=== PATIENT | female | born 1965 | race Caucasian/White ===

== ENCOUNTER → 2019-11-28 | Day surgery (SDC) | payer OTHER ==
[~2019-11-28] MED LIST: GLUCAGON FOR INJ 1 MG VIAL ONE; HYOSCYAMINE 0.125 MG TAB ONE; LEVOTHYROXINE88 MCG PO; LIDOCAINE HCL 2% LOCAL INJ 5 ML SDV VIAL INJ ONE; LISINOPRIL10 MG PO; PROPOFOL IV EMULSION 10 MG/ML 20 ML VIAL ONE; SIMVASTATIN40 MG PO
[2019-11-28 15:20] VITALS: BP 128/76
--- NOTE | 2019-11-28 15:44 | Operative Report ---
DATE OF PROCEDURE: 11/28/2019 SURGEON: Landon Zavala MD PROCEDURE: Colonoscopy with biopsies. INDICATIONS FOR COLONOSCOPY: Colorectal cancer screening, positive Cologuard test. MEDICATIONS: The patient was done under MAC, please see anesthesiologist's note. PROCEDURE IN DETAIL: With the patient in left lateral decubitus position, the flexible fiberoptic Olympus colonoscope was inserted into the rectum with ease and advanced all the way to the cecum. It was then withdrawn slowly, mucosa overlying the cecum, ascending colon, transverse colon grossly appeared to be within normal limits. Diverticular disease was noted primarily in the left colon. Two prominent folds were noted in the distal descending colon and biopsies were obtained, and site was tattooed. The sigmoid other than for diverticular disease grossly appeared to be within normal limits. The rectum was within normal limits. The scope was then retroflexed into the distal rectum, small internal hemorrhoids were noted, none of which was actively bleeding. The scope was then straightened out, it was subsequently withdrawn. The patient tolerated the procedure well. IMPRESSION: 1. Diverticulosis. 2. Prominent folds x2, distal descending colon, biopsied, and site tattooed. 3. Internal hemorrhoids, none actively bleeding. PLAN: 1. Followup histology. 2. Initiate high-fiber, low-fat diet. 3. Initiate high-fiber supplement. 4. If biopsies are positive for adenomatous tissue, then a repeat colonoscopy with attempt to resect per endoscopic mucosa resection of both folds in the distal descending colon. Landon Zavala MD [facility] [place] /[id number] cc: DR. THOMAS GIL
== END | disposition home or self-care (01) ==
LOC: OR 11:45
PROVIDERS: ATTEND Internal Medicine Gastroenterology
DX: R19.5 Other fecal abnormalities (principal); K63.89 Other specified diseases of intestine; K57.30 Diverticulosis of large intestine without perforation or abscess without bleeding; K64.8 Other hemorrhoids; I10 Essential (primary) hypertension; N20.0 Calculus of kidney; R00.1 Bradycardia, unspecified; E66.01 Morbid (severe) obesity due to excess calories; F41.9 Anxiety disorder, unspecified; Z01.810 Encounter for preprocedural cardiovascular examination; Z01.812 Encounter for preprocedural laboratory examination; Z11.59 Encounter for screening for other viral diseases; Z68.43 Body mass index [BMI] 50.0-59.9, adult; Z98.84 Bariatric surgery status
CPT/HCPCS: 45380; 45381; 93005; J1610; J2001; J2704; U0002

== ENCOUNTER → 2020-07-20 | Day surgery (SDC) | payer MEDICARE ==
[~2020-07-20] MED LIST changes: +BUPROPION HCL150 M2 PO; +BUSPIRONE HCL10 MG PO; +CITALOPRAM HBR20 MG PO; +DICYCLOMINE HCL20 MG PO; +FAMOTIDINE20 MG PO; -GLUCAGON FOR INJ 1 MG VIAL ONE; -HYOSCYAMINE 0.125 MG TAB ONE; -LIDOCAINE HCL 2% LOCAL INJ 5 ML SDV VIAL INJ ONE; +MIDAZOLAM HCL 2 MG/2 ML VIAL ONE; +ONDANSETRON ODT4 MG PO; -PROPOFOL IV EMULSION 10 MG/ML 20 ML VIAL ONE
[2020-07-20 09:15] VITALS: BP 139/82
== END | disposition home or self-care (01) ==
LOC: ENDO 05:54
PROVIDERS: ATTEND Internal Medicine Gastroenterology
DX: K20.90 Esophagitis, unspecified without bleeding (principal); K21.9 Gastro-esophageal reflux disease without esophagitis; K44.9 Diaphragmatic hernia without obstruction or gangrene; K31.89 Other diseases of stomach and duodenum; Z98.84 Bariatric surgery status; Z86.010 Personal history of colon polyps; K59.09 Other constipation; N39.0 Urinary tract infection, site not specified; I10 Essential (primary) hypertension; M54.9 Dorsalgia, unspecified; M54.2 Cervicalgia; F32.9 Major depressive disorder, single episode, unspecified; F41.9 Anxiety disorder, unspecified; Z01.810 Encounter for preprocedural cardiovascular examination; Z01.812 Encounter for preprocedural laboratory examination; Z20.822 Contact with and (suspected) exposure to COVID-19; Z68.41 Body mass index [BMI] 40.0-44.9, adult
CPT/HCPCS: 43245; 93005; J2250; U0002; 43450

== ENCOUNTER → 2020-08-24 | Day surgery (SDC) | payer MEDICARE ==
[~2020-08-24] MED LIST changes: -MIDAZOLAM HCL 2 MG/2 ML VIAL ONE
[2020-08-24 13:25] VITALS: BP 146/69
== END | disposition home or self-care (01) ==
LOC: OR 11:40
PROVIDERS: ATTEND Internal Medicine Gastroenterology
DX: K95.89 Other complications of other bariatric procedure (principal); K31.89 Other diseases of stomach and duodenum; Z98.84 Bariatric surgery status; K20.90 Esophagitis, unspecified without bleeding; K44.9 Diaphragmatic hernia without obstruction or gangrene; I10 Essential (primary) hypertension; E03.9 Hypothyroidism, unspecified; E78.00 Pure hypercholesterolemia, unspecified; E66.01 Morbid (severe) obesity due to excess calories; K21.9 Gastro-esophageal reflux disease without esophagitis; N20.0 Calculus of kidney; Z01.812 Encounter for preprocedural laboratory examination; Z20.822 Contact with and (suspected) exposure to COVID-19; Z68.42 Body mass index [BMI] 45.0-49.9, adult; Z85.42 Personal history of malignant neoplasm of other parts of uterus
CPT/HCPCS: 43245; C1726; U0002; 43450

== ENCOUNTER → 2021-09-06 | Day surgery (SDC) | payer MEDICARE ==
[~2021-09-06] MED LIST changes: +LIDOCAINE HCL 2% LOCAL INJ 5 ML SDV VIAL INJ ONE; +METOCLOPRAMIDE HCL 10 MG/2ML VIAL ONE; +MULTI-VITAMIN1 EACH PO; +ONDANSETRON HCL INJ 2MG/ML 2ML 2 MG/ML VIAL ONE; +POVIDONE IODINE 0.05% 0.05 % ML PO ONE; +PROPOFOL IV EMULSION 10 MG/ML 20 ML VIAL ONE; +PROTONIX20 MG PO; +VITAMIN D250 MCG PO; +VITAMIN D3 COM1 EACH PO
[2021-09-06 09:20] VITALS: BP 133/64
== END | disposition home or self-care (01) ==
LOC: ENDO 06:44
PROVIDERS: ATTEND Internal Medicine Gastroenterology
DX: K29.50 Unspecified chronic gastritis without bleeding (principal); K25.9 Gastric ulcer, unspecified as acute or chronic, without hemorrhage or perforation; R13.10 Dysphagia, unspecified; K44.9 Diaphragmatic hernia without obstruction or gangrene; K31.89 Other diseases of stomach and duodenum; Z98.84 Bariatric surgery status; K50.90 Crohn's disease, unspecified, without complications; Z71.3 Dietary counseling and surveillance; E03.9 Hypothyroidism, unspecified; I10 Essential (primary) hypertension; E78.00 Pure hypercholesterolemia, unspecified; R00.1 Bradycardia, unspecified; E66.01 Morbid (severe) obesity due to excess calories; F41.9 Anxiety disorder, unspecified; Z01.810 Encounter for preprocedural cardiovascular examination; Z01.812 Encounter for preprocedural laboratory examination; Z20.822 Contact with and (suspected) exposure to COVID-19; Z79.899 Other long term (current) drug therapy; Z68.41 Body mass index [BMI] 40.0-44.9, adult; Z85.42 Personal history of malignant neoplasm of other parts of uterus; Z92.3 Personal history of irradiation
CPT/HCPCS: 43239; 43245; 88305; 88342; 93005; C1726; C9113; J2001; J2405; J2704; J2765; U0002; 43450; 88304

== ENCOUNTER 2024-03-22 07:35 | Emergency (ER) | payer MEDICARE ==
[~2024-03-22] VITALS: Ht 167.6 cm; Wt 159.7 kg
[~2024-03-22 07:35] MED LIST changes: -LIDOCAINE HCL 2% LOCAL INJ 5 ML SDV VIAL INJ ONE; -METOCLOPRAMIDE HCL 10 MG/2ML VIAL ONE; -ONDANSETRON HCL INJ 2MG/ML 2ML 2 MG/ML VIAL ONE; -POVIDONE IODINE 0.05% 0.05 % ML PO ONE; -PROPOFOL IV EMULSION 10 MG/ML 20 ML VIAL ONE
[2024-03-22 07:57] VITALS: PULSE 80; RESP 19; TEMP 98.1
[2024-03-22] MEDS ORDERED: SODIUM CHLORIDE FLUSH 10 ML SYR IV PRN (08:30)
[2024-03-22 08:35] LABS: BASOPHILS # (AUTO) 0.1 (0.0-0.1); BASOPHILS % 0.7 % (0.0-1.0); EOSINOPHILS # (AUTO) 0.2 (0.0-0.4); EOSINOPHILS % 2.2 % (0.0-6.0); HEMATOCRIT 43.4 % (34.2-44.1); HEMOGLOBIN 13.4 g/dL (12.0-16.0); LYMPHOCYTES % 28.5 % (18.0-39.1); MEAN CORPUSCULAR HGB CONC 30.9 g/dL (31-35); MEAN CORPUSCULAR VOLUME 100.5 fL (81-99); MONOCYTES # (AUTO) 0.5 (0.2-0.8); MONOCYTES % 7.7 % (4.4-11.3); NEUTROPHILS # (AUTO) 3.8 (2.1-6.9); NEUTROPHILS % 55.8 % (38.7-80.0); PLATELET COUNT 333 x10e3/uL (140-360); RED BLOOD COUNT 4.32 x10e6/uL (3.6-5.1); RED CELL DISTRIBUTION WIDTH 14.3 % (11.7-14.4); WHITE BLOOD COUNT 6.87 x10e3/uL (4.8-10.8)
[2024-03-22] MEDS: BENZONATATE 100 MG CAP PO STA (08:40)
[2024-03-22] MEDS: KETOROLAC TROMETHAMINE 30 MG/ML VIAL IV STA (08:40)
[2024-03-22] MEDS: LABETALOL HCL 5 MG/ML 20ML VIAL IV STA (08:41)
[2024-03-22 08:55] LABS: ALANINE AMINOTRANSFERASE 12 IU/L (0-55); ALBUMIN 3.1 g/dL (3.5-5.0); ALBUMIN/GLOBULIN RATIO 0.7 (0.8-2.0); ALKALINE PHOSPHATASE 96 IU/L (40-150); ANION GAP 13.8 mmol/L (8-16); BILIRUBIN,TOTAL 0.2 mg/dL (0.2-1.2); BLOOD UREA NITROGEN 10 mg/dL (7-26); BUN/CREATININE RATIO 13 (6-25); CALCIUM 9.4 mg/dL (8.4-10.2); CARBON DIOXIDE 22 mmol/L (22-29); CHLORIDE 105 mmol/L (98-107); CREATININE, SERUM 0.75 mg/dL (0.57-1.11); EST GLOMERULAR FILTRATION RATE 93 ML/MIN (>=60); GLUCOSE 104 mg/dL (74-118); POTASSIUM 3.8 mmol/L (3.5-5.1); SODIUM 137 mmol/L (136-145); TOTAL PROTEIN 7.3 g/dL (6.5-8.1)
[2024-03-22 09:03] LABS: TROPONIN I < 0.001 ng/mL (0-0.300)
[2024-03-22 09:15] LABS: CORONAVIRUS COVID-19 AG NEGATIVE (NEGATIVE); INFLUENZA A AG NEGATIVE (NEGATIVE); INFLUENZA B AG NEGATIVE (NEGATIVE)
[2024-03-22] MEDS ORDERED: IOPAMIDOL 370 MG/ML 100 ML INFUS..BTL INJ ONE (09:53)
[2024-03-22] MEDS ORDERED: AZITHROMYCIN250 MG PO (10:42)
[2024-03-22] MEDS ORDERED: BENZONATATE100 MG PO (10:42)
[2024-03-22 11:00] VITALS: BP 136/78; PULSE 74; RESP 17; O2SAT 100
== END 2024-03-22 11:03 | disposition home or self-care (01) ==
LOC: ER 08:17
DX: R05.9 Cough, unspecified (principal); J18.9 Pneumonia, unspecified organism; I10 Essential (primary) hypertension; E78.5 Hyperlipidemia, unspecified; E03.9 Hypothyroidism, unspecified; F41.9 Anxiety disorder, unspecified; Z98.84 Bariatric surgery status
CPT/HCPCS: 36415; 71046; 74177; 80053; 83880; 84484; 85025; 87428; 99284; J1885; J3490; Q9967